=== PATIENT | male | born 1980 | race Caucasian/White ===

== ENCOUNTER 2017-04-29 17:58 | Emergency (ER) | payer OTHER ==
[~2017-04-29] VITALS: Ht 182.9 cm; Wt 97.5 kg
[~2017-04-29 17:58] MED LIST: ACETAMINOPHEN-1 EAC1 PO; IBUPROFEN 800800 M1 PO
[2017-04-29] MEDS ORDERED: IBUPROFEN 800800 MG PO (18:58)
[2017-04-29 19:12] VITALS: BP 141/84
== END 2017-04-29 19:13 | disposition home or self-care (01) ==
LOC: M.ERS 17:58
DX: S80.12XA Contusion of left lower leg, initial encounter (principal); Z88.1 Allergy status to other antibiotic agents; Z88.5 Allergy status to narcotic agent; W20.8XXA Other cause of strike by thrown, projected or falling object, initial encounter; Y93.89 Activity, other specified; Y92.89 Other specified places as the place of occurrence of the external cause; Y99.8 Other external cause status; J45.909 Unspecified asthma, uncomplicated

== ENCOUNTER 2017-08-16 18:09 | Emergency (ER) | payer OTHER ==
[~2017-08-16] VITALS: Ht 185.4 cm; Wt 97.5 kg
[~2017-08-16 18:09] MED LIST changes: +IBUPROFEN 800800 MG PO
[2017-08-16 18:46] LABS: ABSOLUTE BASOPHILS 0.1 thou/uL (0.0-0.2); ABSOLUTE EOSINOPHILS 0.2 thou/uL (0.0-0.7); ABSOLUTE LYMPHOCYTES 2.7 thou/uL (0.8-5.3); ABSOLUTE MONOCYTES 0.6 thou/uL (0.0-1.2); ABSOLUTE NEUTROPHILS 3.4 thou/uL (1.6-8.1); BASOPHILS 0.9 %; EOSINOPHILS 2.4 %; HEMATOCRIT 49.3 % (42.0-52.0); HEMOGLOBIN 16.9 gm/dL (14.0-18.0); LYMPHOCYTES 38.5 %; MCH 30.3 pg (26.0-34.0); MCHC 34.2 g/dL (28.0-37.0); MCV 88.7 fL (80.0-100.0); MONOCYTES 9.2 %; MPV 7.4 fl. (7.2-11.1); NUCLEATED RBCS 0 /100WBC; PLATELET COUNT* 246 thou/uL (150-400); RBC 5.56 mil/uL (4.50-6.00); RDW-CV 12.9 % (10.5-14.5)
[2017-08-16 19:14] LABS: CALCIUM 8.9 mg/dL (8.5-10.1); CREATININE 1.3 mg/dL (0.6-1.3); POTASSIUM 3.9 mmol/L (3.5-5.1)
[2017-08-16 19:18] LABS: ALBUMIN 3.9 g/dL (3.4-5.0); TOTAL BILIRUBIN 1.2 mg/dL (<0.1-1.0); TOTAL PROTEIN 7.2 g/dL (6.4-8.2)
[2017-08-16] MEDS ORDERED: COMPAZINE10 MG PO (21:09)
[2017-08-16 21:20] VITALS: BP 140/90
--- NOTE | 2017-08-18 12:53 | EKG ---
[place] [address] ELECTROCARDIOGRAM REPORT Name: MELANIE BOO Room: [facility]#: [id number] Admission: 08/16/17 Attend Phys: Discharge: 08/16/17 Date of : 80 Report #: [id number] THIS REPORT FOR: //name// [facility] ED Test Date: 2017-08-16 Test Time: 19:38:22 Pat Name: MELANIE BOO Department: Room: Gender: M Solderer Torch: JENNIE : 1980 Requested By: Mitchell Kang Order Number: [id number] MD: John Paris Measurements Intervals [place] Rate: 81 P: 42 CT: 152 QRS: 89 QRSD: 83 T: 46 QT: 363 QTc: 422 Interpretive Statements Sinus rhythm ST elev, probable normal early repol pattern No previous ECG available for comparison Electronically Signed On 08-18-2017 12:53:40 CDT by John Paris [email or web address] <ELECTRONICALLY SIGNED> By: John Paris MD, LOCATED WITHIN [facility] 08/18/17 1253 1938 37 John Paris MD, FACC /EPI
== END 2017-08-16 21:20 | disposition home or self-care (01) ==
LOC: M.ERS 18:09
PROVIDERS: Physician Assistant
DX: K29.70 Gastritis, unspecified, without bleeding (principal); J45.909 Unspecified asthma, uncomplicated; F17.200 Nicotine dependence, unspecified, uncomplicated; Z88.5 Allergy status to narcotic agent